=== PATIENT | male | born 2000 | race Caucasian/White ===

== ENCOUNTER 2024-03-17 16:00 | Emergency (ER) | payer SELFPAY ==
[~2024-03-17] VITALS: Ht 167.6 cm; Wt 108.5 kg
[2024-03-17 16:07] VITALS: BP 120/70; PULSE 73; RESP 18; TEMP 98.1; O2SAT 98
[2024-03-17] MEDS ORDERED: KETOROLAC 30 MG/ML VIAL ONE (17:32)
[2024-03-17] MEDS: KETOROLAC 30 MG/ML VIAL IM ONE (17:40)
[2024-03-17] MEDS ORDERED: IBUP-2213 PO (18:06)
[2024-03-17 18:37] VITALS: BP 111/57; PULSE 66; RESP 20; TEMP 98.6; O2SAT 97
== END 2024-03-17 18:37 | disposition home or self-care (01) ==
LOC: MED 16:00
DX: N50.812 Left testicular pain (principal); Z79.899 Other long term (current) drug therapy
CPT/HCPCS: 76870; 81002; 87491; 96372; 99285; J1885; Q0092